=== PATIENT | female | born 1950 ===

== ENCOUNTER 2021-07-08 13:10 | Emergency (ER) | payer MEDICARE, OTHER ==
[~2021-07-08] VITALS: Ht 154.9 cm; Wt 80.3 kg
[2021-07-08] MEDS ORDERED: AMBIEN (13:52)
[2021-07-08] MEDS ORDERED: NORVASC (13:52)
[2021-07-08] MEDS ORDERED: PRAVACHOL (13:52)
[2021-07-08] MEDS ORDERED: CATAPRES (13:52)
[2021-07-08] MEDS ORDERED: HYDRALAZINE (13:52)
[2021-07-08] MEDS ORDERED: OMEPRAZOLE (13:52)
[2021-07-08] MEDS ORDERED: METOPROLOL TARTRATE (13:52)
[2021-07-08] MEDS ORDERED: METFORMIN (13:52)
[2021-07-08] MEDS ORDERED: XANAX (13:52)
[2021-07-08] MEDS ORDERED: BENAZEPRIL (13:52)
[2021-07-08] MEDS ORDERED: PANTOPRAZOLE SODIUM 40 MG VIAL IV ONE (14:00)
[2021-07-08] MEDS ORDERED: IV NORMAL SALINE 1000 ML BAG IV ONE (14:00)
[2021-07-08] MEDS ORDERED: ONDANSETRON 4 MG/2 ML VIAL IV ONE (14:00)
[2021-07-08] MEDS ORDERED: ONDANSETRON 4 MG/2 ML VIAL ONE (14:23)
[2021-07-08] MEDS ORDERED: PANTOPRAZOLE SODIUM 40 MG VIAL ONE (14:23)
[2021-07-08 15:32] LABS: HEMATOCRIT 38.1 % (31.2-41.9); MEAN CORPUSCULAR HEMOGLOBIN 30.9 uug (24.7-32.8); MEAN CORPUSCULAR VOLUME 89.6 fL (75.5-95.3); PLATELET COUNT (AUTO) 142 K/uL (179-408)
[2021-07-08 15:38] LABS: CARBON DIOXIDE 24 mmol/L (21-32); CHLORIDE 105 mmol/L (98-107); CREATININE 1.2 mg/dL (0.6-1.3); GLUCOSE 199 mg/dL (74-106); POTASSIUM 3.5 mmol/L (3.5-5.1); UREA NITROGEN, BLOOD 20 mg/dL (7-18)
[2021-07-08 15:44] LABS: ALANINE AMINOTRANSFERASE 33 U/L (14-59); ALKALINE PHOSPHATASE 88 U/L (50-136); ASPARTATE AMINOTRANSFERASE 19 U/L (15-37); BILIRUBIN,DIRECT 0.1 mg/dL (0.0-0.2); BILIRUBIN,TOTAL 0.5 mg/dL (0.2-1.0); LIPASE 240 U/L (73-393); TOTAL PROTEIN, SERUM 7.2 g/dL (6.4-8.2)
[2021-07-08 16:33] LABS: *BILIRUBIN,URIN NEGATIVE (NEGATIVE); *BLOOD, URINE NEGATIVE (NEGATIVE); *COLOR,URINE YELLOW (YELLOW); *KETONES,URINE NEGATIVE (NEGATIVE); *UROBILINOGEN,URINE 0.2 E.U./dl (NORMAL); LEUKOCYTE ESTERASE ,URINE NEGATIVE (NEGATIVE); NITRITE, URINE NEGATIVE (NEGATIVE); UGLUCOSE NEGATIVE (NEGATIVE)
[2021-07-08 16:40] LABS: *CLARITY,URINE SLIGHTLY HAZY (CLEAR); BACTERIA,URINE NONE SEEN /HPF (NONE SEEN); RBC,URINE 0-3 /HPF (0-3); SQUAMOUS EPITHELIAL CELL,UR MODERATE /HPF (NONE SEEN)
[2021-07-08] MEDS ORDERED: ONDA8TAB13 PO (17:01)
--- NOTE | 2021-07-08 18:20 | NUR ---
Patient is resting comfortably in bed with eyes closed, NAD noted.
--- NOTE | 2021-07-08 19:17 | NUR ---
Hands off report given to Terry SPENCER.
--- NOTE | 2021-07-08 19:44 | NUR ---
received pt, a/o denies pain.
--- NOTE | 2021-07-08 20:27 | NUR ---
Patient discharged to home in stable condition. Written and verbal after care instructions given. Patient verbalizes understanding of instructions. Stressed follow up or return to ER for worsening s/s. pt ambulatory denies pain, gait steady.
[2021-07-08 20:29] VITALS: BP 140/65
== END 2021-07-08 20:30 | disposition home or self-care (01) ==
LOC: ER 13:12
DX: U07.1 COVID-19 (principal); R11.2 Nausea with vomiting, unspecified; R19.7 Diarrhea, unspecified; R00.1 Bradycardia, unspecified; Z82.49 Family history of ischemic heart disease and other diseases of the circulatory system; E11.9 Type 2 diabetes mellitus without complications; K21.9 Gastro-esophageal reflux disease without esophagitis; Z79.84 Long term (current) use of oral hypoglycemic drugs; Z79.899 Other long term (current) drug therapy
CPT/HCPCS: 36415; 71045; 80048; 80076; 81001; 83690; 83880; 84484 ×2; 85025; 87086; 93005 ×2; 96361; 96374; 96375; 99285; C9113; J2405; 70030-TC; A4663; J7030